=== PATIENT | female | born 1980 ===

== ENCOUNTER 2017-12-31 07:47 | Inpatient (IN) | payer BC, OTHER ==
[2017-12-31] MEDS ORDERED: Fentanyl 100 MCG/2 ML VIAL ONE ×3 (08:09→12:11)
[2017-12-31 08:18] LABS: Hemoglobin 12.4 g/dL (12.0-16.0); Mean Corpuscular HGB CONC 33.3 g/dL (32.0-36.0); Mean Corpuscular Hemoglobin 29.7 pg (27.0-31.0); Mean Corpuscular Volume 89.1 fl (81.0-99.0); Mean Platelet Volume 7.6 fL (7.4-10.4); Platelet Count 253 thou/uL (130-400); RBC Distribution Width 11.7 % (11.5-14.5); Red Blood Cell (RBC) Count 4.18 mill/uL (4.20-5.40)
[2017-12-31 08:24] LABS: INR-International Normal Ratio 1.1; PTT 24.2 SEC (22.9-36.1)
[2017-12-31 08:25] LABS: Pregs Control Background? CLEAR/WHITE (CLR/WHITE); Pregs Control Bar Appear? YES (CONTROL BAR)
[2017-12-31 08:26] LABS: BHCG - Serum Negative (NEGATIVE)
[2017-12-31 08:37] LABS: ALT (SGPT) 65 U/L (8-55); AST (SGOT) 86 U/L (5-34); Albumin 3.5 g/dL (3.5-5.0); Alcohol 184 mg/dL (Less than 10); Alkaline Phosphatase 50 U/L (40-150); Anion Gap 14 mmol/L (10-20); BUN (Urea Nitrogen) 9 mg/dL (7.0-18.7); Bilirubin, Total Less than 0.2 mg/dL (0.2-1.2); Calc. Creatinine Clearance 0 mL/min (70-130); Calcium 7.7 mg/dL (7.8-10.44); Carbon Dioxide 13 mmol/L (22-29); Chloride 117 mmol/L (98-107); Estimated GFR-MDRD Greater than 90; Globulin 3.4 g/dL (2.4-3.5); Glucose 131 mg/dL (70-105); Lipase 25 U/L (8-78); Potassium 3.5 mmol/L (3.5-5.1); Protein, Total 6.9 g/dL (6.0-8.3); Sodium 140 mmol/L (136-145)
[2017-12-31 08:43] LABS: Band 16 % (5-11); Lymphocytes 10 % (21-51); MDiff Complete? YES; Monocytes 3 % (0-10); Neutrophil 71 % (42-75)
[2017-12-31] MEDS ORDERED: Adacel (T-DAP) 0.5 ML VIAL ONE (08:44)
[2017-12-31] MEDS ORDERED: Ondansetron ODT 4 MG TAB PO PRN (08:48)
[2017-12-31] MEDS ORDERED: Ondansetron HCl/PF 4 MG/2 ML Vial IVP PRN ×4 (08:48→14:23)
[2017-12-31] MEDS ORDERED: Dextrose 5% in Water 1,000 ML IV PRN (08:48)
[2017-12-31] MEDS ORDERED: Dextrose 50% Abboject 50 ML SYRINGE SLOW IVP PRN (08:48)
[2017-12-31] MEDS ORDERED: Morphine 4 MG/ML VIAL SLOW IVP PRN ×2 (08:48→18:44)
[2017-12-31 08:49] LABS: Bilirubin Negative (Negative); Blood, Urine Trace (Negative); Clarity CLEAR (Clear); Glucose, Urine (Dipstick) Negative (Negative); Leukocyte Negative (Negative); Nitrite Negative (Negative); Protein, Urine (Dipstick) Negative (Neg-Trace); Specific Gravity, Urine 1.013 (1.002-1.036); Urobilinogen 0.2 mg/dL (0.2-1.0); pH, Urine 5.5 (5.0-9.0)
[2017-12-31 08:51] LABS: Bacteria/HPF None Seen HPF (None Seen); Hyaline Casts/LPF 4-6 HYALINE CAST LPF (0-3 Hyaline); Pathc Cast-AUWi Flag 0.87 (0-2.49); RBC/HPF 0-3 HPF (0-3); Squamous Epithelial 0-3 HPF (0-3); WBC/HPF 0-3 HPF (0-3)
[2017-12-31 08:59] LABS: Amphetamine Not Detected (NotDetected); Barbiturates Screen Not Detected (NotDetected); Benzodiazepine Screen Not Detected (NotDetected); Cocaine Metabolite Screen Not Detected (NotDetected); Medtox Control Line Valid? VALID (VALID); Medtox Reader # READER 4; Methadone Not Detected (NotDetected); Methamphetamine Not Detected (NotDetected); Opiate Screen Not Detected (NotDetected); Oxycodone Screen Not Detected (NotDetected); Phencyclidine (PCP) Not Detected (NotDetected); THC/Cannabinoid Screen Not Detected (NotDetected); Tricyclic Screen Not Detected (NotDetected)
[2017-12-31] MEDS ORDERED: Senokot S 8.6-50 MG TAB PO SCH (09:00)
[2017-12-31 09:20] LABS: CKMB 17.7 ng/mL (0-6.6)
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
[2017-12-31] MEDS ORDERED: CEFAZOLIN/Water 2 GM/20 ML SYRINGE ONE (11:42)
[2017-12-31] MEDS ORDERED: Clindamycin/D5W 900 mg/50 ml Premix Bag ONE (11:47)
[2017-12-31] MEDS ORDERED: Levofloxacin 500 mg/D5W 100 ml Premix Bag ONE (11:47)
[2017-12-31] MEDS ORDERED: traMADol HCl 50 MG TAB PO SCH (12:00)
[2017-12-31] MEDS ORDERED: Ketorolac Tromethamine 30 MG/ML VIAL IVP SCH (12:00)
[2017-12-31] MEDS ORDERED: Acetaminophen 500 MG TAB PO SCH (12:00)
[2017-12-31] MEDS ORDERED: Dexamethasone 20 MG/5 ML VIAL ONE (12:05)
[2017-12-31] MEDS ORDERED: Succinylcholine Chloride 20 MG/ML 10 ml SYRINGE FS ONE (12:05)
[2017-12-31] MEDS ORDERED: PHENYLEPHRINE-NS 100 MCG/ML 10 ML SYRINGE ONE (12:05)
[2017-12-31] MEDS ORDERED: PROPOFOL 200 MG/20 ML VIAL ONE (12:05)
[2017-12-31] MEDS ORDERED: Ketorolac Tromethamine 30 MG/ML VIAL ONE (12:05)
[2017-12-31] MEDS ORDERED: Lidocaine 1% PF 5 ML VIAL ONE (12:05)
[2017-12-31] MEDS ORDERED: HYDROmorphone 0.5 MG/0.5 ML SYRINGE ONE ×2 (13:10→13:11)
[2017-12-31] MEDS ORDERED: ISOVUE-370 76%-LOCM 1 ML ONE (13:34)
[2017-12-31] MEDS ORDERED: Promethazine HCl 25 MG/ML VIAL SLOW IVP PRN (14:03)
[2017-12-31] MEDS ORDERED: HYDROmorphone 2 MG/ML VIAL SLOW IVP PRN (14:03)
[2017-12-31] MEDS ORDERED: Promethazine HCl 25 MG/ML VIAL IM PRN ×2 (14:03→14:23)
[2017-12-31] MEDS ORDERED: Milk Of Magnesia 30 ML UDCUP PO PRN (14:05)
[2017-12-31] MEDS ORDERED: Cepastat Lozenges 1 LOZ PO PRN (14:05)
[2017-12-31] MEDS ORDERED: Fleet Enema 133 ML BOT PR PRN (14:05)
[2017-12-31] MEDS ORDERED: Bisacodyl 10 MG SUPP PR PRN (14:05)
[2017-12-31] MEDS ORDERED: Zolpidem Tartrate 5 MG TAB PO PRN (14:23)
[2017-12-31] MEDS ORDERED: Ropivacaine HCl/PF 250 ML in Premix Bag 1 BAG NERVE BLCK SCH (14:23)
[2017-12-31] MEDS ORDERED: traMADol HCl 50 MG TAB PO PRN ×2 (14:23)
--- NOTE | 2017-12-31 16:02 | RAD ---
4 INTRAOPERATIVE FLUOROSCOPIC IMAGES RIGHT FEMUR: Date: 12/31/17 HISTORY: Intramedullary nail right femur. FINDINGS: AP and lateral projections of the proximal and lower portions of the right femur are submitted for in terpretation. There is an antegrade intramedullary ashwin with distal interlocking screw transfixing the previously se en displaced and fracture involving the middle one-third right femoral diaphysis. There is improvement in alignment of the fracture fragments. No hardware complication is seen. Skin clips are seen adjacent to the distal left knee and at the lateral right proximal thigh. IMPRESSION: Internal fixation of fracture middle one-third diaphysis right femur. POS: [facility]
--- NOTE | 2017-12-31 16:24 | OP ---
DATE OF OPERATION: 12/31/2017 PREOPERATIVE DIAGNOSIS: Fracture of the midshaft of the right femur. POSTOPERATIVE DIAGNOSIS: Fracture of the midshaft of the right femur. PROCEDURE: Intramedullary rodding of the right femoral shaft. SURGEON: Philip Godfrey M.D. ANESTHESIA: General. TECHNIQUE: The patient was given preoperative IV antibiotics, taken to the operating room. Satisfac tory general anesthesia was performed. The patient was placed on the fracture table. All bony promi nences were well-padded and traction was applied to a well-padded right foot and ankle. C-arm verifi ed good distraction of the fracture and that the fracture could be reduced. Therefore, the lateral a spect of the right hip and thigh was sterilely prepped and draped. A longitudinal incision was made proximal to the greater trochanter approximately 3 inches in length and under fluoroscopic visualizat ion, a guide pin was placed through the lateral aspect of the top of the greater trochanter. It was then over reamed and a guidewire was then inserted into the proximal aspect of the femur. The fractu re was reduced and the guidewire was placed across the fracture and into the distal aspect of the fem ur. The appropriate length of the femur itself was measured at 360 mm and the femoral canal was then gradually reamed up to a 11.5 mm and a Synthes lateral entry Recon nail was inserted. It was 10 mm in diameter, 360 mm in length. It was inserted down to the appropriate position. There was excellen t bone fixation at the isthmus, which is in the proximal part of the shaft proximal to the fracture. Distally, a 5.0 locking screw was inserted into the distal aspect of the femur and in the ashwin. This provided excellent fixation for the fracture as well as good rotational control. The wounds were th en copiously irrigated with antibiotic solution. They were closed using #2 Vicryl for the deeper tis debbie, 2-0 Vicryl for the fat and subcutaneous tissue, and skin was closed with skin citlali. The smal l incision for the distal locking screw was closed just with citlali. Sterile dressing was applied. The patient was taken out of traction off the fracture table. She was awakened, extubated, and yu sferred to the recovery room in stable condition. ESTIMATED BLOOD LOSS: 125 mL. COMPLICATIONS: None.
[2017-12-31] MEDS: Ondansetron ODT 4 MG TAB PO PRN (17:49)
[2017-12-31] MEDS: Folic Acid 1 MG TAB PO SCH (17:51)
[2017-12-31] MEDS: Acetaminophen 325 MG TAB PO SCH ×2 (18:15→23:44)
[2017-12-31] MEDS: Sodium Chloride 0.9% 1,000 ML IV SCH ×2 (18:17→18:39)
[2017-12-31] MEDS: Multivit, Therapeutic 1 TAB PO SCH (18:17)
[2017-12-31] MEDS: Polyethylene Glycol 3350 17 GM Packet PO SCH (18:17)
[2017-12-31] MEDS: Ketorolac Tromethamine 30 MG/ML VIAL IVP SCH ×2 (18:18→23:44)
[2017-12-31] MEDS: traMADol HCl 50 MG TAB PO SCH ×2 (18:18→23:43)
[2017-12-31 18:59] VITALS: BMI 34.7
[2017-12-31] MEDS: Ferrous Gluconate 324 MG TAB PO SCH (20:37)
[2017-12-31] MEDS: Senokot S 8.6-50 MG TAB PO SCH (20:37)
[2017-12-31] MEDS: Ascorbic Acid 500 mg Chewable Tablet PO SCH (20:38)
[2018-01-01] MEDS: Sodium Chloride 0.9% 1,000 ML IV SCH ×3 (03:15→17:33)
[2018-01-01 04:45] LABS: Anion Gap 10 mmol/L (10-20); BUN (Urea Nitrogen) 9 mg/dL (7.0-18.7); CK (CPK) 1887 U/L (29-168); Calc. Creatinine Clearance 165 mL/min (70-130); Calcium 7.3 mg/dL (7.8-10.44); Carbon Dioxide 22 mmol/L (22-29); Chloride 110 mmol/L (98-107); Estimated GFR-MDRD Greater than 90; Glucose 127 mg/dL (70-105); Phosphorus 2.4 mg/dL (2.3-4.7); Potassium 3.3 mmol/L (3.5-5.1); Sodium 139 mmol/L (136-145)
[2018-01-01 04:51] LABS: #Lymphocytes 1.2 thou/uL (1.20-3.40); #Neutrophils 5.9 thou/uL (1.40-6.50); %Basophils 0.1 % (0.0-1.0); %Eosinophils 0.1 % (0.0-10.0); %Lymphocytes 14.4 % (21.0-51.0); %Monocytes 12.4 % (0.0-10.0); Hemoglobin 9.1 g/dL (12.0-16.0); Mean Corpuscular HGB CONC 33.5 g/dL (32.0-36.0); Mean Corpuscular Hemoglobin 29.7 pg (27.0-31.0); Mean Corpuscular Volume 88.8 fl (81.0-99.0); Mean Platelet Volume 7.9 fL (7.4-10.4); Platelet Count 255 thou/uL (130-400); RBC Distribution Width 11.7 % (11.5-14.5); Red Blood Cell (RBC) Count 3.08 mill/uL (4.20-5.40); White Blood Cell (WBC) Count 8.1 thou/uL (4.8-10.8)
[2018-01-01] MEDS: Acetaminophen 325 MG TAB PO SCH ×3 (06:07→17:31)
[2018-01-01] MEDS: traMADol HCl 50 MG TAB PO SCH ×3 (06:07→17:31)
[2018-01-01] MEDS: Ketorolac Tromethamine 30 MG/ML VIAL IVP SCH ×3 (06:08→17:33)
[2018-01-01] MEDS ORDERED: Potassium Chloride 20 MEQ TAB PO SCH (07:45)
[2018-01-01] MEDS: Multivitamin W/ Minerals 1 TAB PO SCH (09:15)
[2018-01-01] MEDS: Folic Acid 1 MG TAB PO SCH (09:15)
[2018-01-01] MEDS: Multivit, Therapeutic 1 TAB PO SCH (09:16)
[2018-01-01] MEDS: Ascorbic Acid 500 mg Chewable Tablet PO SCH ×2 (09:16→20:39)
[2018-01-01] MEDS: Senokot S 8.6-50 MG TAB PO SCH ×2 (09:16→20:39)
[2018-01-01] MEDS: Bacitracin Zinc 1 Packet TOP SCH ×2 (09:17→20:43)
[2018-01-01] MEDS: Ferrous Gluconate 324 MG TAB PO SCH ×2 (09:17→20:39)
[2018-01-01] MEDS: HYDROcodone/Acetaminophen 10/325 mg Tablet PO PRN (09:30)
[2018-01-01] MEDS: Enoxaparin Sodium 40 MG/0.4 ML SYRINGE SC SCH (09:31)
[2018-01-01] MEDS ORDERED: Sodium Chloride 0.9% 500 ML IV SCH (11:30)
[2018-01-01] MEDS: Polyethylene Glycol 3350 17 GM Packet PO SCH (12:45)
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
[2018-01-02] MEDS: Sodium Chloride 0.9% 1,000 ML IV SCH ×4 (00:01→22:55)
[2018-01-02] MEDS: traMADol HCl 50 MG TAB PO SCH ×4 (00:02→18:12)
[2018-01-02] MEDS: Acetaminophen 325 MG TAB PO SCH ×4 (00:02→18:13)
[2018-01-02] MEDS: Ketorolac Tromethamine 30 MG/ML VIAL IVP SCH ×3 (00:03→11:21)
--- NOTE | 2018-01-02 00:56 | PRG ---
DATE OF SERVICE: 01/01/2018 SUBJECTIVE: The patient is 1-day status post intramedullary rodding of the right femur. She has no neurologic complaints in the right lower extremity. OBJECTIVE: Patient has been afebrile. She has been running low blood pressure. Her last one was 98 /64. She has been given fluids, which has increased up to 111/68, her pulse 78, respiratory rate 16. The right lower extremity has been neurovascularly intact. LABORATORY DATA: Her CBC today showed white count of 8.1, hemoglobin 9.1, hematocrit 27.3. Patient has been started with physical and occupational therapy. She may weightbear as tolerated on both lower extremities. She may increase her activities as tolerated. Plan on her after hospitaliza tion is for her to go home and have outpatient physical therapy.
[2018-01-02] MEDS: HYDROcodone/Acetaminophen 10/325 mg Tablet PO PRN ×2 (04:47→21:03)
[2018-01-02 05:34] LABS: Hemoglobin 8.2 g/dL (12.0-16.0); Mean Corpuscular HGB CONC 33.5 g/dL (32.0-36.0); Mean Corpuscular Hemoglobin 30.2 pg (27.0-31.0); Mean Corpuscular Volume 90.2 fl (81.0-99.0); Platelet Count 213 thou/uL (130-400); RBC Distribution Width 11.9 % (11.5-14.5)
[2018-01-02 06:03] LABS: Anion Gap 6 mmol/L (10-20); BUN (Urea Nitrogen) 6 mg/dL (7.0-18.7); CK (CPK) 2315 U/L (29-168); Calc. Creatinine Clearance 182 mL/min (70-130); Calcium 7.5 mg/dL (7.8-10.44); Carbon Dioxide 24 mmol/L (22-29); Chloride 113 mmol/L (98-107); Estimated GFR-MDRD Greater than 90; Glucose 100 mg/dL (70-105); Magnesium 2.2 mg/dL (1.6-2.6); Phosphorus 1.8 mg/dL (2.3-4.7); Potassium 3.7 mmol/L (3.5-5.1); Sodium 139 mmol/L (136-145)
[2018-01-02] MEDS ORDERED: Potassium Phosphate 30 MMOL in Sodium Chloride 0.9% 250 ML 250 ML IVPB SCH (06:15)
[2018-01-02] MEDS: Ascorbic Acid 500 mg Chewable Tablet PO SCH ×2 (08:50→21:04)
[2018-01-02] MEDS: Multivitamin W/ Minerals 1 TAB PO SCH (08:50)
[2018-01-02] MEDS: Senokot S 8.6-50 MG TAB PO SCH ×2 (08:50→21:04)
[2018-01-02] MEDS: Ferrous Gluconate 324 MG TAB PO SCH ×2 (08:50→21:04)
[2018-01-02] MEDS: Folic Acid 1 MG TAB PO SCH (08:51)
[2018-01-02] MEDS: Bacitracin Zinc 1 Packet TOP SCH ×2 (08:51→21:05)
[2018-01-02] MEDS: Polyethylene Glycol 3350 17 GM Packet PO SCH (08:51)
[2018-01-02] MEDS: Ondansetron ODT 4 MG TAB PO PRN (08:51)
[2018-01-02] MEDS: Multivit, Therapeutic 1 TAB PO SCH (08:51)
[2018-01-02] MEDS: Enoxaparin Sodium 40 MG/0.4 ML SYRINGE SC SCH (11:21)
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
[2018-01-02] MEDS ORDERED: Bacitracin Zinc 1 Packet TOP PRN (16:20)
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
[2018-01-03] MEDS: Acetaminophen 325 MG TAB PO SCH ×5 (00:32→23:22)
[2018-01-03] MEDS: traMADol HCl 50 MG TAB PO SCH ×5 (00:32→23:22)
[2018-01-03 07:16] LABS: #Eosinphils 0.1 thou/uL (0.0-0.7); #Lymphocytes 1.6 thou/uL (1.20-3.40); #Monocytes 0.3 thou/uL (0.11-0.59); #Neutrophils 2.8 thou/uL (1.40-6.50); %Basophils 0.6 % (0.0-1.0); %Eosinophils 1.4 % (0.0-10.0); %Lymphocytes 33.3 % (21.0-51.0); %Monocytes 6.3 % (0.0-10.0); %Neutrophils 58.4 % (42.0-75.0); Hemoglobin 7.7 g/dL (12.0-16.0); Mean Corpuscular HGB CONC 33.5 g/dL (32.0-36.0); Mean Corpuscular Hemoglobin 30.1 pg (27.0-31.0); Mean Platelet Volume 7.6 fL (7.4-10.4); Platelet Count 222 thou/uL (130-400); RBC Distribution Width 11.7 % (11.5-14.5); Red Blood Cell (RBC) Count 2.54 mill/uL (4.20-5.40); White Blood Cell (WBC) Count 4.9 thou/uL (4.8-10.8)
[2018-01-03 07:30] LABS: Anion Gap 6 mmol/L (10-20); BUN (Urea Nitrogen) 6 mg/dL (7.0-18.7); CK (CPK) 1771 U/L (29-168); Calc. Creatinine Clearance 182 mL/min (70-130); Calcium 7.5 mg/dL (7.8-10.44); Carbon Dioxide 26 mmol/L (22-29); Chloride 110 mmol/L (98-107); Estimated GFR-MDRD Greater than 90; Glucose 92 mg/dL (70-105); Magnesium 2.1 mg/dL (1.6-2.6); Phosphorus 2.7 mg/dL (2.3-4.7); Potassium 3.5 mmol/L (3.5-5.1); Sodium 138 mmol/L (136-145)
[2018-01-03] MEDS: HYDROcodone/Acetaminophen 10/325 mg Tablet PO PRN (09:25)
[2018-01-03] MEDS: Ondansetron ODT 4 MG TAB PO PRN (09:25)
[2018-01-03] MEDS: Ascorbic Acid 500 mg Chewable Tablet PO SCH ×2 (09:25→20:34)
[2018-01-03] MEDS: Bacitracin Zinc 1 Packet TOP SCH ×2 (09:25→20:35)
[2018-01-03] MEDS: Multivitamin W/ Minerals 1 TAB PO SCH (09:25)
[2018-01-03] MEDS: Folic Acid 1 MG TAB PO SCH (09:25)
[2018-01-03] MEDS: Ferrous Gluconate 324 MG TAB PO SCH ×2 (09:25→20:35)
[2018-01-03] MEDS: Enoxaparin Sodium 40 MG/0.4 ML SYRINGE SC SCH (09:26)
[2018-01-03] MEDS: Sodium Chloride 0.9% 1,000 ML IV SCH ×3 (09:36→23:27)
[2018-01-03] MEDS: Polyethylene Glycol 3350 17 GM Packet PO SCH (09:37)
[2018-01-03] MEDS: Senokot S 8.6-50 MG TAB PO SCH ×2 (09:37→20:35)
[2018-01-03] MEDS: Scopolamine 1.5 mg/72 hour Patch TD SCH (12:55)
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
[2018-01-04 04:37] LABS: #Eosinphils 0.1 thou/uL (0.0-0.7); #Lymphocytes 1.1 thou/uL (1.20-3.40); #Monocytes 0.3 thou/uL (0.11-0.59); %Basophils 0.6 % (0.0-1.0); %Eosinophils 1.2 % (0.0-10.0); %Monocytes 5.5 % (0.0-10.0); %Neutrophils 72.7 % (42.0-75.0); Hemoglobin 7.7 g/dL (12.0-16.0); Mean Corpuscular HGB CONC 34.7 g/dL (32.0-36.0); Mean Corpuscular Hemoglobin 30.9 pg (27.0-31.0); Mean Platelet Volume 7.6 fL (7.4-10.4); Platelet Count 243 thou/uL (130-400); RBC Distribution Width 11.5 % (11.5-14.5); Red Blood Cell (RBC) Count 2.49 mill/uL (4.20-5.40); White Blood Cell (WBC) Count 5.5 thou/uL (4.8-10.8)
[2018-01-04 04:56] LABS: Anion Gap 9 mmol/L (10-20); BUN (Urea Nitrogen) 5 mg/dL (7.0-18.7); CK (CPK) 1354 U/L (29-168); Calc. Creatinine Clearance 185 mL/min (70-130); Calcium 7.8 mg/dL (7.8-10.44); Carbon Dioxide 27 mmol/L (22-29); Chloride 108 mmol/L (98-107); Estimated GFR-MDRD Greater than 90; Glucose 96 mg/dL (70-105); Phosphorus 3.2 mg/dL (2.3-4.7); Potassium 3.8 mmol/L (3.5-5.1); Sodium 140 mmol/L (136-145)
[2018-01-04] MEDS: Acetaminophen 325 MG TAB PO SCH ×3 (05:38→17:48)
[2018-01-04] MEDS: traMADol HCl 50 MG TAB PO SCH ×3 (05:38→17:46)
[2018-01-04] MEDS: Sodium Chloride 0.9% 1,000 ML IV SCH ×2 (07:15→16:53)
[2018-01-04] MEDS: Ondansetron ODT 4 MG TAB PO PRN (09:30)
[2018-01-04] MEDS ORDERED: Cyclobenzaprine 10 MG TAB PO SCH ×2 (09:46→10:00)
[2018-01-04] MEDS ORDERED: Ketorolac Tromethamine 30 MG/ML VIAL IVP SCH (10:00)
[2018-01-04] MEDS: Enoxaparin Sodium 40 MG/0.4 ML SYRINGE SC SCH (10:26)
[2018-01-04] MEDS ORDERED: ISOVUE-370 76%-LOCM 1 ML ONE (12:15)
[2018-01-04] MEDS: Ascorbic Acid 500 mg Chewable Tablet PO SCH ×2 (12:38→21:04)
[2018-01-04] MEDS: Senokot S 8.6-50 MG TAB PO SCH ×3 (12:38→21:04)
[2018-01-04] MEDS: Multivitamin W/ Minerals 1 TAB PO SCH ×2 (12:38→19:51)
[2018-01-04] MEDS: Ferrous Gluconate 324 MG TAB PO SCH ×3 (12:39→21:05)
[2018-01-04] MEDS: Folic Acid 1 MG TAB PO SCH ×2 (12:39→19:51)
[2018-01-04] MEDS: Polyethylene Glycol 3350 17 GM Packet PO SCH (12:39)
[2018-01-04] MEDS: Bacitracin Zinc 1 Packet TOP SCH ×2 (12:39→21:04)
[2018-01-04 13:58] LABS: CKMB 1.9 ng/mL (0-6.6); Troponin I Less than 0.010 ng/mL (< 0.028)
--- NOTE | 2018-01-04 14:13 | RAD ---
ONE VIEW CHEST: HISTORY: Pain. COMPARISON: None. FINDINGS: Diminished lung volume is likely due to poor inspiratory effort. No masses or consolidation. No pne umothorax or osseous abnormalities. IMPRESSION: No acute cardiopulmonary process. POS: [facility]
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
--- NOTE | 2018-01-04 16:16 | CT ---
CTA OF THE CHEST WITH CONTRAST 01/04/18 COMPARISON: None. HISTORY: Tachycardia and chest pain. Fever. TECHNIQUE: Multiple contiguous axial images were obtained in a CTA of the chest with contrast per pulmonary embo lism protocol. 3D sagittal and direct coronal reformats were performed. 3D oblique sagittal MIP refor mats and direct coronal reformats were performed. FINDINGS: The pulmonary arteries are well opacified without filling defects to suggest pulmonary emboli. The he art is normal in size without focal cardiac abnormality. No hilar or mediastinal lymphadenopathy are seen. There are small bilateral pleural effusions with adjacent atelectasis. No focal infiltrates are seen. No nodules are seen in the lungs. Mild degenerative changes are seen in the spine. The chest wall soft tissues are unremarkable. The v isualized subdiaphragmatic structures are unremarkable. IMPRESSION: 1. Small bilateral pleural effusions with adjacent atelectasis. 2. No evidence of pulmonary thromboembolism. POS: [facility]
[2018-01-04] MEDS: Cyclobenzaprine 10 MG TAB PO SCH ×2 (16:49→21:54)
[2018-01-04] MEDS: HYDROcodone/Acetaminophen 10/325 mg Tablet PO PRN (16:49)
--- NOTE | 2018-01-04 16:54 | ULT ---
BILATERAL LOWER EXTREMITY VENOUS ULTRASOUND WITH DOPPLER 01/04/18 HISTORY: Bilateral lower extremity edema. COMPARISON: None. TECHNIQUE: Herbert scale, color flow, doppler imaging with spectral waveform analysis is performed of the left and right lower extremity deep venous system. FINDINGS: The distal femoral vein could not be evaluated due to edema. Unable to evaluate the popliteal vein du e to recent ashwin placement. Limited compression of the right lower extremity due to pain. Augmentation was not performed due to lack of visualization of all right lower extremity vessels. The visualized common femoral vein, proximal and mid femoral vein in the right lower extremity are patent. Profunda femoral vein and greater saphenous vein are patent. LEFT LOWER EXTREMITY: There is compressibility, presence of flow and augmentation in the common femoral vein, femoral vein, and popliteal vein. There is flow in the greater saphenous vein, profunda vein and posterior tibial vein. IMPRESSION: 1. No evidence of thrombus in the left lower extremity deep venous system. 2. Limited evaluation of the right lower extremity venous system. No obvious thrombus. POS: [facility]
[2018-01-04] MEDS ORDERED: Morphine 4 MG/ML VIAL SLOW IVP SCH (17:45)
[2018-01-04 18:45] LABS: CKMB 1.1 ng/mL (0-6.6); Troponin I Less than 0.010 ng/mL (< 0.028)
[2018-01-04] MEDS ORDERED: Gabapentin 100 MG CAP PO SCH (21:00)
[2018-01-04] MEDS: Ketorolac Tromethamine 30 MG/ML VIAL IVP SCH (22:49)
[2018-01-04 22:57] LABS: Troponin I 0.016 ng/mL (< 0.028)
[2018-01-05] MEDS: Acetaminophen 325 MG TAB PO SCH ×5 (00:26→23:36)
[2018-01-05] MEDS: traMADol HCl 50 MG TAB PO SCH ×5 (00:38→23:36)
[2018-01-05] MEDS: Ketorolac Tromethamine 30 MG/ML VIAL IVP SCH ×2 (05:56→13:17)
[2018-01-05] MEDS: Sodium Chloride 0.9% 1,000 ML IV SCH ×3 (06:58→19:04)
[2018-01-05 09:11] LABS: #Lymphocytes 0.4 thou/uL (1.20-3.40); #Monocytes 0.3 thou/uL (0.11-0.59); #Neutrophils 8.5 thou/uL (1.40-6.50); %Eosinophils 0.1 % (0.0-10.0); %Lymphocytes 4.1 % (21.0-51.0); %Monocytes 2.9 % (0.0-10.0); %Neutrophils 92.9 % (42.0-75.0); Hemoglobin 8.6 g/dL (12.0-16.0); Mean Corpuscular HGB CONC 33.2 g/dL (32.0-36.0); Mean Corpuscular Hemoglobin 29.3 pg (27.0-31.0); Mean Corpuscular Volume 88.2 fl (81.0-99.0); Mean Platelet Volume 7.4 fL (7.4-10.4); Platelet Count 261 thou/uL (130-400); Red Blood Cell (RBC) Count 2.94 mill/uL (4.20-5.40); White Blood Cell (WBC) Count 9.1 thou/uL (4.8-10.8)
[2018-01-05] MEDS: Ferrous Gluconate 324 MG TAB PO SCH ×2 (09:50→20:20)
[2018-01-05] MEDS: Ascorbic Acid 500 mg Chewable Tablet PO SCH ×2 (09:50→20:20)
[2018-01-05] MEDS: Senokot S 8.6-50 MG TAB PO SCH ×2 (09:50→20:20)
[2018-01-05] MEDS: Enoxaparin Sodium 40 MG/0.4 ML SYRINGE SC SCH (09:50)
[2018-01-05] MEDS: Folic Acid 1 MG TAB PO SCH (09:50)
[2018-01-05] MEDS: Multivitamin W/ Minerals 1 TAB PO SCH (09:50)
[2018-01-05] MEDS: Polyethylene Glycol 3350 17 GM Packet PO SCH (09:50)
[2018-01-05] MEDS: HYDROcodone/Acetaminophen 10/325 mg Tablet PO PRN (10:03)
[2018-01-05] MEDS: Bacitracin Zinc 1 Packet TOP SCH ×2 (12:36→20:20)
[2018-01-05] MEDS: Ondansetron ODT 4 MG TAB PO PRN (12:48)
[2018-01-05] MEDS: Oxazepam 10 MG CAP PO SCH (20:20)
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
[2018-01-06] MEDS: HYDROcodone/Acetaminophen 10/325 mg Tablet PO PRN (04:17)
[2018-01-06] MEDS: traMADol HCl 50 MG TAB PO SCH ×4 (04:20→23:11)
[2018-01-06] MEDS: Acetaminophen 325 MG TAB PO SCH ×4 (04:20→23:09)
[2018-01-06 04:50] LABS: #Lymphocytes 0.9 thou/uL (1.20-3.40); #Monocytes 0.5 thou/uL (0.11-0.59); #Neutrophils 9.7 thou/uL (1.40-6.50); %Basophils 0.1 % (0.0-1.0); %Eosinophils 0.1 % (0.0-10.0); %Lymphocytes 8.1 % (21.0-51.0); %Monocytes 4.8 % (0.0-10.0); Mean Corpuscular HGB CONC 33.8 g/dL (32.0-36.0); Mean Corpuscular Hemoglobin 29.9 pg (27.0-31.0); Mean Corpuscular Volume 88.6 fl (81.0-99.0); Mean Platelet Volume 7.2 fL (7.4-10.4); Platelet Count 255 thou/uL (130-400); RBC Distribution Width 12.3 % (11.5-14.5); Red Blood Cell (RBC) Count 2.68 mill/uL (4.20-5.40); White Blood Cell (WBC) Count 11.1 thou/uL (4.8-10.8)
[2018-01-06 04:58] LABS: Anion Gap 7 mmol/L (10-20); BUN (Urea Nitrogen) 6 mg/dL (7.0-18.7); Calc. Creatinine Clearance 188 mL/min (70-130); Calcium 8.1 mg/dL (7.8-10.44); Carbon Dioxide 28 mmol/L (22-29); Chloride 103 mmol/L (98-107); Estimated GFR-MDRD Greater than 90; Glucose 114 mg/dL (70-105); Magnesium 2.1 mg/dL (1.6-2.6); Phosphorus 2.6 mg/dL (2.3-4.7); Potassium 3.2 mmol/L (3.5-5.1); Sodium 135 mmol/L (136-145)
[2018-01-06] MEDS: Oxazepam 10 MG CAP PO SCH ×3 (05:44→23:09)
[2018-01-06] MEDS: Multivitamin W/ Minerals 1 TAB PO SCH (09:07)
[2018-01-06] MEDS: Folic Acid 1 MG TAB PO SCH (09:07)
[2018-01-06] MEDS: Ascorbic Acid 500 mg Chewable Tablet PO SCH ×2 (09:07→20:36)
[2018-01-06] MEDS: Ferrous Gluconate 324 MG TAB PO SCH ×2 (09:07→20:36)
[2018-01-06] MEDS: Senokot S 8.6-50 MG TAB PO SCH ×2 (09:08→20:36)
[2018-01-06] MEDS: Bacitracin Zinc 1 Packet TOP SCH ×2 (09:08→20:36)
[2018-01-06] MEDS: Polyethylene Glycol 3350 17 GM Packet PO SCH (09:09)
[2018-01-06] MEDS: Enoxaparin Sodium 40 MG/0.4 ML SYRINGE SC SCH (09:09)
[2018-01-06] MEDS: Ibuprofen 600 MG TAB PO PRN ×2 (09:17→23:12)
--- NOTE | 2018-01-06 11:10 | RAD ---
PORTABLE CHEST; Date: 01/06/18 HISTORY: Tachycardia, shortness of breath. COMPARISON: 01/04/18 study. FINDINGS: Heart size within normal limits for lordotic portable technique. Mediastinal structures are unremarka ble. Lungs are clear of infiltrates. No signs of failure. IMPRESSION: No active intrathoracic disease. POS: [facility]
[2018-01-06] MEDS: Scopolamine 1.5 mg/72 hour Patch TD SCH (13:26)
--- NOTE | 2018-01-06 15:07 | EKG ---
Test Reason : Blood Pressure : / mmHG Vent. Rate : 104 BPM Atrial Rate : 104 BPM P-R Int : 146 ms QRS Dur : 082 ms QT Int : 366 ms P-R-T Axes : 051 003 -19 degrees QTc Int : 481 ms Sinus tachycardia Nonspecific T wave abnormality Abnormal ECG Confirmed by ISSAC GEORGES, SYLVSETER ([id number]), city editor PEDRO SHAY ([id number]) on 01/06/2018 3:07:29 PM Referred By: Confirmed By:SYLVESTER DAVENPORT MD
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
[2018-01-07 04:37] LABS: #Eosinphils 0.1 thou/uL (0.0-0.7); #Lymphocytes 0.9 thou/uL (1.20-3.40); #Monocytes 0.7 thou/uL (0.11-0.59); #Neutrophils 7.8 thou/uL (1.40-6.50); %Basophils 0.2 % (0.0-1.0); %Eosinophils 0.6 % (0.0-10.0); %Lymphocytes 9.3 % (21.0-51.0); %Monocytes 7.1 % (0.0-10.0); %Neutrophils 82.8 % (42.0-75.0); Hemoglobin 7.8 g/dL (12.0-16.0); Mean Corpuscular HGB CONC 33.4 g/dL (32.0-36.0); Mean Corpuscular Volume 89.8 fl (81.0-99.0); Mean Platelet Volume 7.3 fL (7.4-10.4); Platelet Count 310 thou/uL (130-400); RBC Distribution Width 12.2 % (11.5-14.5); White Blood Cell (WBC) Count 9.4 thou/uL (4.8-10.8)
[2018-01-07 04:44] LABS: Anion Gap 8 mmol/L (10-20); BUN (Urea Nitrogen) 5 mg/dL (7.0-18.7); Calc. Creatinine Clearance 195 mL/min (70-130); Calcium 8.3 mg/dL (7.8-10.44); Carbon Dioxide 30 mmol/L (22-29); Chloride 103 mmol/L (98-107); Estimated GFR-MDRD Greater than 90; Glucose 100 mg/dL (70-105); Magnesium 2.1 mg/dL (1.6-2.6); Phosphorus 3.2 mg/dL (2.3-4.7); Potassium 3.3 mmol/L (3.5-5.1); Sodium 138 mmol/L (136-145)
[2018-01-07] MEDS: Oxazepam 10 MG CAP PO SCH ×3 (06:00→20:59)
[2018-01-07] MEDS: traMADol HCl 50 MG TAB PO SCH ×4 (06:01→23:31)
[2018-01-07] MEDS: Acetaminophen 325 MG TAB PO SCH ×4 (06:03→23:31)
[2018-01-07] MEDS ORDERED: Potassium Chloride 20 MEQ TAB PO SCH (08:15)
[2018-01-07] MEDS: Ferrous Gluconate 324 MG TAB PO SCH ×3 (08:53→20:57)
[2018-01-07] MEDS: Senokot S 8.6-50 MG TAB PO SCH ×3 (08:54→20:58)
[2018-01-07] MEDS: Folic Acid 1 MG TAB PO SCH (08:54)
[2018-01-07] MEDS: Ascorbic Acid 500 mg Chewable Tablet PO SCH ×3 (08:55→20:57)
[2018-01-07] MEDS: Bacitracin Zinc 1 Packet TOP SCH ×2 (08:56→20:57)
[2018-01-07] MEDS: Polyethylene Glycol 3350 17 GM Packet PO SCH (08:56)
[2018-01-07] MEDS: Enoxaparin Sodium 40 MG/0.4 ML SYRINGE SC SCH (08:56)
[2018-01-07] MEDS: Multivitamin W/ Minerals 1 TAB PO SCH (08:56)
[2018-01-07] MEDS: Ondansetron ODT 4 MG TAB PO PRN (10:31)
[2018-01-07] MEDS: Ibuprofen 600 MG TAB PO PRN ×2 (10:37→22:25)
[2018-01-07] MEDS ORDERED: Hydrocortisone Sod Succ/PF 100 mg/2 ml Vial IVP SCH (21:45)
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
[2018-01-08 04:59] LABS: #Lymphocytes 0.7 thou/uL (1.20-3.40); #Monocytes 0.7 thou/uL (0.11-0.59); %Basophils 0.1 % (0.0-1.0); %Eosinophils 0.2 % (0.0-10.0); %Lymphocytes 6.4 % (21.0-51.0); %Monocytes 7.1 % (0.0-10.0); %Neutrophils 86.2 % (42.0-75.0); Hemoglobin 7.6 g/dL (12.0-16.0); Mean Corpuscular HGB CONC 33.2 g/dL (32.0-36.0); Mean Corpuscular Hemoglobin 29.6 pg (27.0-31.0); Mean Platelet Volume 6.7 fL (7.4-10.4); Platelet Count 353 thou/uL (130-400); RBC Distribution Width 12.4 % (11.5-14.5); Red Blood Cell (RBC) Count 2.57 mill/uL (4.20-5.40); White Blood Cell (WBC) Count 10.5 thou/uL (4.8-10.8)
[2018-01-08 05:15] LABS: Anion Gap 10 mmol/L (10-20); BUN (Urea Nitrogen) 6 mg/dL (7.0-18.7); Calc. Creatinine Clearance 185 mL/min (70-130); Calcium 8.5 mg/dL (7.8-10.44); Carbon Dioxide 30 mmol/L (22-29); Chloride 102 mmol/L (98-107); Estimated GFR-MDRD Greater than 90; Glucose 162 mg/dL (70-105); Magnesium 2.2 mg/dL (1.6-2.6); Phosphorus 3.7 mg/dL (2.3-4.7); Potassium 3.7 mmol/L (3.5-5.1); Sodium 138 mmol/L (136-145)
[2018-01-08] MEDS: traMADol HCl 50 MG TAB PO SCH ×4 (06:14→23:35)
[2018-01-08] MEDS: Acetaminophen 325 MG TAB PO SCH ×4 (06:14→23:35)
[2018-01-08] MEDS: Oxazepam 10 MG CAP PO SCH ×3 (06:14→23:31)
[2018-01-08] MEDS: Senokot S 8.6-50 MG TAB PO SCH ×2 (09:51→20:43)
[2018-01-08] MEDS: Multivitamin W/ Minerals 1 TAB PO SCH (09:51)
[2018-01-08] MEDS: Enoxaparin Sodium 40 MG/0.4 ML SYRINGE SC SCH (09:52)
[2018-01-08] MEDS: Ascorbic Acid 500 mg Chewable Tablet PO SCH ×2 (09:52→20:42)
[2018-01-08] MEDS: Ferrous Gluconate 324 MG TAB PO SCH ×2 (09:52→20:42)
[2018-01-08] MEDS: Folic Acid 1 MG TAB PO SCH (09:52)
[2018-01-08] MEDS: Polyethylene Glycol 3350 17 GM Packet PO SCH ×2 (09:53→18:26)
[2018-01-08] MEDS: Bacitracin Zinc 1 Packet TOP SCH ×2 (09:54→20:42)
[2018-01-08] MEDS: Ibuprofen 600 MG TAB PO PRN ×2 (11:05→20:42)
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
--- NOTE | 2018-01-08 18:36 | EKG ---
Test Reason : Blood Pressure : / mmHG Vent. Rate : 114 BPM Atrial Rate : 114 BPM P-R Int : 154 ms QRS Dur : 078 ms QT Int : 314 ms P-R-T Axes : 033 001 -15 degrees QTc Int : 432 ms Sinus tachycardia Minimal voltage criteria for LVH, may be normal variant Nonspecific T wave abnormality Abnormal ECG When compared with ECG of 31-DEC-2017 08:48, (Unconfirmed) No significant change was found Confirmed by JIM VERDUZCO (2) on 01/08/2018 6:35:49 PM Referred By: DEA Confirmed By:JIM EVRDUZCO
[2018-01-09] MEDS: Oxazepam 10 MG CAP PO SCH ×2 (06:27→17:38)
[2018-01-09] MEDS: Acetaminophen 325 MG TAB PO SCH ×3 (06:27→17:38)
[2018-01-09] MEDS: traMADol HCl 50 MG TAB PO SCH ×3 (06:27→17:38)
[2018-01-09] MEDS: Enoxaparin Sodium 40 MG/0.4 ML SYRINGE SC SCH (08:11)
[2018-01-09] MEDS: Ascorbic Acid 500 mg Chewable Tablet PO SCH (08:12)
[2018-01-09] MEDS: Bacitracin Zinc 1 Packet TOP SCH (08:12)
[2018-01-09] MEDS: HYDROcodone/Acetaminophen 10/325 mg Tablet PO PRN (08:12)
[2018-01-09] MEDS: Folic Acid 1 MG TAB PO SCH (08:12)
[2018-01-09] MEDS: Multivitamin W/ Minerals 1 TAB PO SCH (08:13)
[2018-01-09] MEDS: Senokot S 8.6-50 MG TAB PO SCH (08:13)
[2018-01-09] MEDS: Ferrous Gluconate 324 MG TAB PO SCH (08:13)
[2018-01-09] MEDS: Ondansetron ODT 4 MG TAB PO PRN (14:25)
[2018-01-09] MEDS: Scopolamine 1.5 mg/72 hour Patch TD SCH (14:25)
[2018-01-09] MEDS: Polyethylene Glycol 3350 17 GM Packet PO SCH (14:27)
[2018-01-09 20:46] VITALS: BP 95/56; TEMP 99.4
== END 2018-01-09 20:55 | disposition home or self-care (01) | DRG 481 ==
LOC: ERS 07:47 → SURG A 10:44 → ERS 14:17 → SURG A 14:18
PROVIDERS: ADMIT Specialist; ATTEND Specialist
PROC: 0QS806Z Reposition Right Femoral Shaft with Intramedullary Internal Fixation Device, Open Approach (ICD-10-PCS; principal; 2017-12-31)
DX: S72.301A Unspecified fracture of shaft of right femur, initial encounter for closed fracture (principal); M62.82 Rhabdomyolysis; V89.2XXA Person injured in unspecified motor-vehicle accident, traffic, initial encounter; R07.89 Other chest pain; E83.39 Other disorders of phosphorus metabolism; I95.9 Hypotension, unspecified; E78.5 Hyperlipidemia, unspecified; F10.10 Alcohol abuse, uncomplicated
CPT/HCPCS: 36415; 51702; 70450; 70486; 71045; 71260; 71275; 72125; 72170; 74177; 76001; 80048; 80053; 80306; 80307; 81003; 81015; 82040; 82533; 82550; 82553; 83605; 83690; 83735; 84100; 84484; 84703; 85025; 85027; 85610; 85730; 86850; 86900; 86901; 90471; 90715; 93005; 93010; 93970; 94640; 96360; 96374; 96376; C1713; C1769; G0390; G8978-GP-CM; G8979-GP-CK; G8987-GO-CK; G8988-GO-CI; J1100; J1170; J1650; J1720; J1885; J1956; J2001; J2270; J2704; J2795; J3010; J3490; J7050; J7620; Q0162

== ENCOUNTER 2018-01-11 13:58 | Emergency (ER) | payer BC ==
[~2018-01-11 13:58] MED LIST: ISOVUE-370 76%-LOCM 1 ML ONE
[2018-01-11 14:52] LABS: Hemoglobin 8.2 g/dL (12.0-16.0); Mean Corpuscular HGB CONC 33.4 g/dL (32.0-36.0); Mean Corpuscular Hemoglobin 29.6 pg (27.0-31.0); Mean Corpuscular Volume 88.7 fl (81.0-99.0); Platelet Count 695 thou/uL (130-400); RBC Distribution Width 12.8 % (11.5-14.5); Red Blood Cell (RBC) Count 2.77 mill/uL (4.20-5.40); White Blood Cell (WBC) Count 17.7 thou/uL (4.8-10.8)
[2018-01-11 15:05] LABS: ALT (SGPT) 36 U/L (8-55); AST (SGOT) 32 U/L (5-34); Albumin 2.9 g/dL (3.5-5.0); Alkaline Phosphatase 165 U/L (40-150); Anion Gap 15 mmol/L (10-20); BUN (Urea Nitrogen) 6 mg/dL (7.0-18.7); Calc. Creatinine Clearance 0 mL/min (70-130); Carbon Dioxide 26 mmol/L (22-29); Chloride 100 mmol/L (98-107); Estimated GFR-MDRD Greater than 90; Globulin 4.9 g/dL (2.4-3.5); Glucose 96 mg/dL (70-105); Potassium 3.5 mmol/L (3.5-5.1); Protein, Total 7.8 g/dL (6.0-8.3); Sodium 137 mmol/L (136-145)
[2018-01-11 15:07] LABS: CKMB 2.8 ng/mL (0-6.6); Troponin I Less than 0.010 ng/mL (< 0.028)
[2018-01-11 15:21] LABS: Band 4 % (5-11); Lymphocytes 2 % (21-51); MDiff Complete? YES; Monocytes 2 % (0-10); Neutrophil 92 % (42-75); PLT Morphology Comment Appears Increased
[2018-01-11 15:43] LABS: BHCG - Serum Negative (NEGATIVE); Pregs Control Background? CLEAR/WHITE (CLR/WHITE); Pregs Control Bar Appear? YES (CONTROL BAR)
--- NOTE | 2018-01-11 16:33 | ULT ---
BILATERAL LOWER EXTREMITY VENOUS DUPLEX ULTRASOUND INCLUDING COLOR AND SPECTRAL DOPPLER IMAGING: HISTORY: A 37-year-old female with bilateral lower leg pain, swelling, and edema. COMPARISON: 01/04/2018 FINDINGS: Bilateral lower extremity venous duplex ultrasound, including color and spectral Doppler imaging, is performed. Exam performed from groin to ankle, including visualized greater saphenous vein, common f emoral vein, superficial femoral vein, profunda femoral vein, popliteal vein, trifurcation vein, and posterior tibial vein regions, demonstrating phasic flow at all levels. There is normal compressibil ity and normal augmentation. No intraluminal thrombus. IMPRESSION: No evidence for deep venous thrombosis. POS: [facility]
--- NOTE | 2018-01-11 16:58 | CT ---
CTA THORAX WITH IV CONTRAST AND 3D REFORMATTED IMAGING: INDICATIONS: History of chest pain. FINDINGS: No central or segmental pulmonary embolus is evident. There is bibasilar subsegmental volume loss. There is pleural thickening underlying a healing left third rib fracture. There are additional heale d rib fractures involving the left anterior second, third, and fourth ribs. There is an acute alex lateral fifth rib fracture. There is a nondisplaced anterolateral left sixth rib fracture, as well. IMPRESSION: 1. No central or segmental pulmonary embolus. 2. Acute anterolateral left rib fracture. 3. Pleural thickening underlying a healed left anterolateral third rib fracture. There is healed le ft second and fourth rib fractures also present. 4. There is a nondisplaced anterolateral left sixth rib fracture. POS: [facility]
== END 2018-01-11 17:20 | disposition home or self-care (01) ==
LOC: ERS 13:58
DX: G89.18 Other acute postprocedural pain (principal); G89.11 Acute pain due to trauma; M79.604 Pain in right leg; M79.605 Pain in left leg; R07.9 Chest pain, unspecified; E78.5 Hyperlipidemia, unspecified; F41.9 Anxiety disorder, unspecified
CPT/HCPCS: 71275; 80053; 82550; 82553; 84484; 84703; 85025; 93005; 93970